=== PATIENT | female | born 1980 | race Two or more races ===

== ENCOUNTER 2019-11-12 09:46 | Emergency (ER) | payer MEDICAID, OTHER ==
[~2019-11-12] VITALS: Ht 162.6 cm; Wt 88.9 kg
[2019-11-12 09:52] VITALS: BP 107/72
[2019-11-12] MEDS ORDERED: KETOROLAC TROMETH 60MG/2ML VIAL IM ONE (10:30)
[2019-11-12] MEDS ORDERED: METHOCARBAMOL 500 MG TAB PO ONE (10:30)
== END 2019-11-12 10:54 | disposition home or self-care (01) ==
LOC: ER 09:46
DX: S39.012A Strain of muscle, fascia and tendon of lower back, initial encounter (principal); M54.41 Lumbago with sciatica, right side; E66.9 Obesity, unspecified; Z68.33 Body mass index [BMI] 33.0-33.9, adult
CPT/HCPCS: 96372; 99283; J1885